=== PATIENT | male | born 1970 | race Caucasian/White ===

== ENCOUNTER 2022-06-20 15:15 | Emergency (ER) | payer BC ==
[~2022-06-20] VITALS: Ht 182.9 cm; Wt 113.4 kg
[2022-06-20 15:33] VITALS: BP_SYST 204
--- NOTE | 2022-06-20 15:40 | NUR ---
Patient triaged and placed in waiting room. VSS and patient appears in no acute distress at this time. Accompanied by [facility], awaiting available bed, and MD notified of need for MSE.
--- NOTE | 2022-06-20 16:42 | NUR ---
PT BIB [facility], AMBULATED TO BED 4. PT C/O PAIN IN COCCYX DUE TO AN ABCESS. REDNESS AND PURLENT DRAINAGE NOTED IN COCCYX AREA PT DENIES PAIN AT THIS TIME PT IS STANDING. PT STATES ONLY FEELS PAIN WHEN SITTING. PT DENIES N/V/D. PT DENIES SOB. SAFETY PRECAUTIONS IN PLACE.
--- NOTE | 2022-06-20 16:42 | NUR ---
ER Dr. NELSON at bedside examining patient.
[2022-06-20] MEDS ORDERED: BACITRACIN 1 GM OINT TP ONE (16:45)
[2022-06-20] MEDS ORDERED: DIPHTH,PERTUSS(ACELL),TET VAC 0.5 ML VIAL (Tdap) I.M. ONE (16:45)
[2022-06-20] MEDS ORDERED: LIDOCAINE 1% 10 MG/ML, 20 ML MDV INJ ONE (16:45)
[2022-06-20] MEDS ORDERED: IBUP-1971 PO (17:25)
[2022-06-20] MEDS ORDERED: HYDR-3921 PO (17:25)
--- NOTE | 2022-06-20 17:42 | NUR ---
Patient given written and verbal discharge instructions and verbalizes understanding. ER MD discussed with patient the results and treatment provided. Patient in stable condition. ID arm band removed. Rx of NORCO AND MOTRIN given. Patient educated on pain management and to follow up with PMD. Opportunity for questions provided and answered. Medication side effect fact sheet provided.
[2022-06-20 17:48] VITALS: BP_SYST 204
== END 2022-06-20 17:44 | disposition home or self-care (01) ==
LOC: SED 15:15
DX: L02.31 Cutaneous abscess of buttock (principal); Z79.899 Other long term (current) drug therapy
CPT/HCPCS: 99283; 10060; 90715; 90471; J2001

== ENCOUNTER 2022-06-22 14:35 | Emergency (ER) | payer BC ==
[~2022-06-22] VITALS: Ht 182.9 cm; Wt 113.4 kg
[~2022-06-22 14:35] MED LIST: HYDR-3921 PO; IBUP-1971 PO
--- NOTE | 2022-06-22 14:35 | NUR ---
Patient arrived to hospital bed 8 for c/o right buttock wound check. Patient was seen by Dr. Rouse for wound and pus on right buttock. Patient pus was drained a while back and packed with Iodofoam packing gauze. Patient is alert and oriented x4. No neuro deficits. Respiration even and unlabored. No c/o pain. Dr. Rouse MSE patient and changed the packing strip. Will continue to monitor.
--- NOTE | 2022-06-22 14:43 | NUR ---
ER at bedside examining patient.
[2022-06-22] MEDS ORDERED: BACITRACIN 1 GM OINT TP ONE (14:50)
--- NOTE | 2022-06-22 14:58 | NUR ---
Patient given written and verbal discharge instructions and verbalizes understanding. ER MD discussed with patient the results and treatment provided. Patient in stable condition. ID arm band removed. Patient educated on pain management and to follow up with PMD. Pain Scale 0. Opportunity for questions provided and answered. Medication side effect fact sheet provided.
[2022-06-22 14:59] VITALS: BP_SYST 124
== END 2022-06-22 14:58 | disposition home or self-care (01) ==
LOC: SED 14:35
DX: L02.31 Cutaneous abscess of buttock (principal); Z79.899 Other long term (current) drug therapy
CPT/HCPCS: 99282

== ENCOUNTER 2022-06-24 14:23 | Emergency (ER) | payer BC ==
[~2022-06-24] VITALS: Ht 188 cm; Wt 113.4 kg
[2022-06-24 14:38] VITALS: BP_SYST 144
[2022-06-24] MEDS ORDERED: BACITRACIN 1 GM OINT TP ONE ×2 (15:00→15:09)
--- NOTE | 2022-06-24 15:13 | NUR ---
PATIENT PRESENT FOR WOUND CHECK TO THE RIGHT INNER BUTTOCK. DR. NELSON AT BEDSIDE REMOVING WOUND PACKING. NO REDNESS OR SWELLING NOTED. NO PURULENT DRAINAGE. AFEBRILE. OPTIFOAM AND BACITRACIN APPLIED TO AREA AND PATIENT TEACHING PROVIDED TO . PAIN 0/10
[2022-06-24 15:24] VITALS: BP_SYST 132
--- NOTE | 2022-06-24 15:24 | NUR ---
Patient given written and verbal discharge instructions and verbalizes understanding. ER MD discussed with patient the results and treatment provided. Patient in stable condition. ID arm band removed. NO RX given. Patient educated on pain management and to follow up with PMD. Pain Scale 0/10 Opportunity for questions provided and answered.
== END 2022-06-24 15:24 | disposition home or self-care (01) ==
LOC: SED 14:23
DX: Z48.00 Encounter for change or removal of nonsurgical wound dressing (principal); Z79.899 Other long term (current) drug therapy
CPT/HCPCS: 99282